=== PATIENT | male | born 1970 | race Caucasian/White ===

== ENCOUNTER 2017-03-08 19:45 | Emergency (ER) | payer MEDICAID ==
[~2017-03-08] VITALS: Ht 165.1 cm; Wt 77.1 kg
[~2017-03-08 19:45] MED LIST: ACETAMINOPHEN-1 EAC1 ORAL; NAPROSYN500 M1 ORAL
[2017-03-08 20:02] VITALS: BP 122/73
[2017-03-08] MEDS ORDERED: Ketorolac 30mg Inj IV ONE (20:15)
--- NOTE | 2017-03-08 20:41 | Emergency Room Report ---
History of Present Illness General Chief Complaint: Lower Extremity Injury Source: Patient Present Illness HPI The patient presents with 2 days of increased right foot and heel pain. He denies any trauma. He states that he is unable to ambulate because of pain being so severe at this time. Took [place] before coming into the hospital today. He states he's 3 months sober. He had a friend drop him off at the ED. 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 He was receiving treatment in [place]. He said he was "fed up" with the treatment and just stopped. When seen in 2014, he also reported this as recent diagnosis at that time. He states he had a fever this morning. Not documented temperature. The patient smokes cigarettes and has had a mildly productive cough with some yellow phlegm. He denies any wheezing. No JIMENEZ. No chest pain. He has some scrapes on his forehead that he states happened when he fell down stairs several days ago. He did not loose consciousness. He states his last tetanus shot was more than 10 years ago. Pain is severe, constant and worse when he tries to ambulate. There's some blisters on his feet also. No NVD, dysuria. Not sexually active. HIV +. Allergies: Coded Allergies: MEPERIDINE (Verified Allergy, Mild, 11/18/14) MORPHINE (Verified Allergy, Mild, 11/18/14) SACCHARIN (Verified Allergy, Mild, 11/18/14) Patient History Past Medical History: see triage record Social History: Reports: smoking, drug use - sober 3 months Social History Narrative with family Reviewed Nursing Documentation: PMH: Agreed, PSxH: Agreed Nursing Documentation-PMH Hx Asthma: Yes Hx Cancer: Yes - Bone Marrow Cancer 6months ago Review of Systems All Other Systems: negative except mentioned in HPI Physical Exam Vital Signs Date Time Temp Pulse Resp B/P (MAP) Pulse Ox O2 Delivery O2 Flow Rate FiO2 03/08/17 19:48 97.9 69 18 118/73 98 Room Air Sp02 EP Interpretation: reviewed, normal General Appearance: well appearing, no apparent distress, GCS 15 Head: normocephalic, other - abrasions forehead Eyes: bilateral eye normal inspection, bilateral eye PERRL ENT: moist mucus membranes - poor dentition, other Neck: full range of motion, supple Respiratory: chest non-tender, lungs clear, normal breath sounds Cardiovascular #1: regular rate, rhythm Cardiovascular #2: 2+ radial (R), 2+ dorsalis pedis (R), 2+ dorsalis pedis (L) Gastrointestinal: normal inspection, normal bowel sounds, non tender, no mass, non-distended, scaphoid Musculoskeletal: back normal, normal range of motion, no calf tenderness, other - walks with limp Neurologic: alert, oriented x3, grossly normal Psychiatric: other - slightly pressured Skin: warm/dry, other - erythema R lower leg, abrasoins medial maleoli bilaterally, small blister heel R ankle Medical Decision Making Diagnostic Impression: Primary Impression: Cellulitis Qualified Codes: L03.115 - Cellulitis of right lower limb Additional Impressions: UTI (urinary tract infection) Qualified Codes: N30.00 - Acute cystitis without hematuria Amphetamine abuse ER Course Patient with bilateral foot and ankle/leg pain worse on R. DDx: trauma, sprain , cellulitis amongst others. Exam against DVT. Evaluation with xrays, labs. Treatment with toradol. Concern over history of cancer. With productive cough , will obtain CXR. Xrays without ostoe or fractures. Labs with normal WBC, pyuria, slightl elevation CK, + amphetamines. Sleeping without pain. Rocephin given for UTI and start treatment of cellulitis. Will not give phone number of physician for past history. Discussed with patient need for antibiotics and follow up with his MD. Patient stable for outpatient observation and treatment. Laboratory Tests Test 03/08/17 20:40 03/08/17 21:30 White Blood Count 6.5 K/UL (4.8-10.8) Red Blood Count 4.41 M/UL (4.70-6.10) L Hemoglobin 13.4 G/DL (14.2-18.0) L Hematocrit 40.7 % (42.0-52.0) L Mean Corpuscular Volume 92 FL (80-99) Mean Corpuscular Hemoglobin 30.3 PG (27.0-31.0) Mean Corpuscular Hemoglobin Concent 32.8 G/DL (32.0-36.0) Red Cell Distribution Width 10.9 % (11.6-14.8) L Platelet Count 145 K/UL (150-450) L Mean Platelet Volume 5.7 FL (6.5-10.1) L Neutrophils (%) (Auto) 56.2 % (45.0-75.0) Lymphocytes (%) (Auto) 28.2 % (20.0-45.0) Monocytes (%) (Auto) 10.9 % (1.0-10.0) H Eosinophils (%) (Auto) 3.4 % (0.0-3.0) H Basophils (%) (Auto) 1.3 % (0.0-2.0) Erythrocyte Sedimentation Rate 18 MM/HR (0-15) H Prothrombin Time 11.3 SEC (9.30-11.50) Prothrombin Time INR 1.1 (0.9-1.1) PTT 27 SEC (23-33) Sodium Level 142 MMOL/L (136-145) Potassium Level 3.6 MMOL/L (3.5-5.1) Chloride Level 105 MMOL/L (98-107) Carbon Dioxide Level 25 MMOL/L (21-32) Anion Gap 12 mmol/L (5-15) Blood Urea Nitrogen 17 mg/dL (7-18) Creatinine 1.1 MG/DL (0.55-1.30) Estimate Glomerular Filtration Rate > 60 mL/min (>60) Glucose Level 84 MG/DL (74-106) Lactic Acid Level 1.20 mmol/L (0.66-2.22) Uric Acid 5.7 MG/DL (2.6-7.2) Calcium Level 8.9 MG/DL (8.5-10.1) Total Bilirubin 0.9 MG/DL (0.2-1.0) Aspartate Amino Transferase (AST) 50 U/L (15-37) H Alanine Aminotransferase (ALT) 64 U/L (12-78) Alkaline Phosphatase 55 U/L (46-116) Total Creatine Kinase 526 U/L (26-308) H Troponin I 0.000 ng/mL (0.000-0.056) Pro-B-Type Natriuretic Peptide 226 pg/mL (0-125) H Total Protein 7.7 G/DL (6.4-8.2) Albumin 4.3 G/DL (3.4-5.0) Globulin 3.4 g/dL Albumin/Globulin Ratio 1.3 (1.0-2.7) Salicylates Level 1.8 ug/mL (2.8-20) L Acetaminophen Level < 10 MCG/ML (10-30) L Serum Alcohol < 3 mg/dL Urine Color Yellow Urine Appearance Slightly cloudy Urine pH 5 (4.5-8.0) Urine Specific [place] 1.025 (1.005-1.035) Urine Protein 2+ (NEGATIVE) H Urine Glucose (UA) Negative (NEGATIVE) Urine Ketones 3+ (NEGATIVE) H Urine Occult Blood 2+ (NEGATIVE) H Urine Nitrite Negative (NEGATIVE) Urine Bilirubin Negative (NEGATIVE) Urine Urobilinogen 4 MG/DL (0.0-1.0) H Urine Leukocyte Esterase 1+ (NEGATIVE) H Urine RBC 5-10 /HPF (0 - 0) H Urine WBC 10-15 /HPF (0 - 0) H Urine Squamous Epithelial Cells Moderate /LPF (NONE/OCC) H Urine Bacteria Few /HPF (NONE) Urine Opiates Screen Negative (NEGATIVE) Urine Barbiturates Screen Negative (NEGATIVE) Phencyclidine (PCP) Screen Negative (NEGATIVE) Urine Amphetamines Screen Positive (NEGATIVE) H Urine Benzodiazepines Screen Negative (NEGATIVE) Urine Cocaine Screen Negative (NEGATIVE) Urine Marijuana (THC) Screen Negative (NEGATIVE) Chest X-Ray Diagnostic Results Chest X-Ray Diagnostic Results : Chest X-Ray Ordered: Yes # of Views/Limited/Complete: 1 View Indication: Other Interpretation: no consolidation, no effusion, no pneumothorax, no acute cardiopulmonary disease Impression: No acute disease Electronically Signed by: Electronically signed by Adriano Bowser MD Other X-Ray Diagnostic Results Other X-Ray Diagnostic Results #1: X-Ray ordered: l leg # of Views/Limited Vs Complete: 2 View Indication: Pain EP Interpretation: Yes Interpretation: no dislocation, no soft tissue swelling, no fractures Impression: No acute disease Electronically Signed by: Electronically signed by Adriano Bowser MD Other X-Ray Diagnostic Results #2: X-Ray ordered: r leg # of Views/Limited Vs Complete: 2 View Indication: Pain Interpretation: no dislocation, no soft tissue swelling, no fractures Impression: No acute disease Electronically Signed by: Electronically signed by Adriano Bowser MD Last Vital Signs Date Time Temp Pulse Resp B/P (MAP) Pulse Ox O2 Delivery O2 Flow Rate FiO2 03/08/17 23:40 98.2 75 18 122/74 99 Room Air Status: improved Disposition: HOME, SELF-CARE Condition: Improved Scripts Bacitracin (Bacitracin) 28.4 Gm Oint...g. 1 APPLIC TOPIC BID, #20 GM Prov: Adriano Bowser M.D. 03/08/17 Ibuprofen* (MOTRIN*) 600 Mg Tablet 600 MG ORAL Q6H Y for For Pain, #20 TAB Prov: Adriano Bowser M.D. 03/08/17 Cephalexin* (KEFLEX*) 500 Mg Capsule 500 MG ORAL Q6H, #28 CAP 0 Refills Prov: Adriano Bowser M.D. 03/08/17 Trimethoprim/Sulfamethoxazole 160/800* (BACTRIM DS TABLET*) 1 Each Tablet 1 TAB ORAL Q12H, #14 TAB 0 Refills Prov: Adriano Bowser M.D. 03/08/17 Adriano Bowser M.D. Mar 08, 2017 20:41
[2017-03-08] MEDS ORDERED: Bacitracin Oint UD TOPIC ONE (20:45)
[2017-03-08] MEDS ORDERED: Tetanus/Diptheria/Pertussis Vaccine 0.5ml Syr IM ONE (20:45)
[2017-03-08 21:00] VITALS: BP 118/73
[2017-03-08 21:17] LABS: BASOPHILS % (AUTO) 1.3 % (0.0-2.0); EOSINOPHILS % (AUTO) 3.4 % (0.0-3.0); LYMPHOCYTES % (AUTO) 28.2 % (20.0-45.0); MEAN CORPUSCULAR HEMOGLOBIN 30.3 PG (27.0-31.0); MEAN CORPUSCULAR HGB CONC 32.8 G/DL (32.0-36.0); MEAN CORPUSCULAR VOLUME 92 FL (80-99); MEAN PLATELET VOLUME 5.7 FL (6.5-10.1); MONOCYTES % (AUTO) 10.9 % (1.0-10.0); NEUTROPHILS % (AUTO) 56.2 % (45.0-75.0); PLATELET COUNT 145 K/UL (150-450); RED BLOOD COUNT 4.41 M/UL (4.70-6.10); RED CELL DISTRIBUTION WIDTH 10.9 % (11.6-14.8); WHITE BLOOD COUNT 6.5 K/UL (4.8-10.8)
[2017-03-08 21:23] LABS: INR 1.1 (0.9-1.1); PROTHROMBIN TIME 11.3 SEC (9.30-11.50)
[2017-03-08 21:27] LABS: ANION GAP 12 mmol/L (5-15); CALCIUM 8.9 MG/DL (8.5-10.1); CARBON DIOXIDE 25 MMOL/L (21-32); CHLORIDE 105 MMOL/L (98-107); CREATININE 1.1 MG/DL (0.55-1.30); GLOMERULAR FILTRATION RATE > 60 mL/min (>60); POTASSIUM 3.6 MMOL/L (3.5-5.1); SODIUM 142 MMOL/L (136-145)
[2017-03-08 21:38] LABS: ALANINE AMINOTRANSFERASE 64 U/L (12-78); ALBUMIN/GLOBULIN RATIO 1.3 (1.0-2.7); ASPARTATE AMINO TRANSFERASE 50 U/L (15-37); TOTAL PROTEIN 7.7 G/DL (6.4-8.2); URIC ACID 5.7 MG/DL (2.6-7.2)
[2017-03-08 21:39] LABS: ACETAMINOPHEN < 10 MCG/ML (10-30); ALCOHOL < 3 mg/dL
[2017-03-08 22:02] VITALS: BP 123/71
[2017-03-08 22:05] LABS: APPEARANCE,URINE SLIGHTLY CLOUDY; KETONES,URINE 3+ (NEGATIVE); LEUKOCYTE ESTERASE ,URINE 1+ (NEGATIVE); NITRITE,URINE NEGATIVE (NEGATIVE); PH,URINE 5 (4.5-8.0); PROTEIN,URINE 2+ (NEGATIVE); UROBILINOGEN,URINE 4 MG/DL (0.0-1.0)
[2017-03-08 22:06] LABS: BACTERIA,URINE FEW /HPF; SQUAMOUS EPITHELIAL CELL,UR MODERATE /LPF (NONE/OCC)
[2017-03-08 22:26] LABS: ERYTHROCYTE SEDIMENTATION RATE 18 MM/HR (0-15)
[2017-03-08] MEDS ORDERED: cefTRIAXone 1 GM in NS 55 ML IVPB ONE (22:30)
[2017-03-08] MEDS ORDERED: IBUPROFEN600 MG ORAL (23:08)
[2017-03-08] MEDS ORDERED: KEFLEX500 MG ORAL (23:08)
[2017-03-08] MEDS ORDERED: BACTRIM DS TAB1 EAC1 ORAL (23:08)
[2017-03-08] MEDS ORDERED: BACITRACIN15 GM TOPIC (23:10)
[2017-03-08 23:25] VITALS: BP 122/74
[2017-03-08 23:40] VITALS: BP 122/74
--- NOTE | 2017-03-09 11:44 | Diagnostic Imaging Report ---
Indication: Leg pain Technique: 2 views of the right tibia and fibula Comparison: none Findings: No acute fractures. No dislocations. The joint spaces are preserved Impression: Negative This agrees with the preliminary interpretation provided by the emergency room physician
--- NOTE | 2017-03-09 11:46 | Diagnostic Imaging Report ---
Indication: Lower leg pain Technique: 2 views of the left tibia and fibula Comparison: none Findings: No acute fractures. No dislocations. Joint spaces are preserved. No radiopaque foreign body Impression: Negative
--- NOTE | 2017-03-09 11:48 | Diagnostic Imaging Report ---
Indication: Cough Technique: One view of the chest Comparison: none Findings: Lungs and pleural spaces are clear. Heart size is upper limits normal. Impression: No acute process This agrees with the preliminary interpretation provided by the emergency room physician
== END 2017-03-08 23:40 | disposition home or self-care (01) ==
LOC: EMR 21:39
DX: L03.115 Cellulitis of right lower limb (principal); N39.0 Urinary tract infection, site not specified; F15.10 Other stimulant abuse, uncomplicated; J45.909 Unspecified asthma, uncomplicated; Z85.830 Personal history of malignant neoplasm of bone
CPT/HCPCS: 36415; 71010; 73590; 80053; 80307; 80329; 81003; 82550; 83605; 83880; 84484; 84550; 85025; 85610; 85651; 85730; 87040; 87086; 90471; 90715; 96361; 96365; 99284; J0696; J1885